=== PATIENT | male | born 1935 | race Two or more races ===

== ENCOUNTER 2019-10-05 20:31 | Inpatient (IN) | payer MEDICARE, MEDICAID ==
[~2019-10-05] VITALS: Ht 165.1 cm; Wt 65.8 kg
[2019-10-05] MEDS ORDERED: FUROSEMIDE 40MG/4ML VIAL IVP ONE (22:15)
[2019-10-05 23:13] LABS: BASOPHILS % 0.9 % (0.0-2.0); EOSINOPHILS % 1.7 % (0.0-5.0); HEMOGLOBIN. 9.4 g/dL (14.0-18.0); LYMPHOCYTES % 17.5 % (20.0-50.0); MEAN CORPUSCULAR HEMOGLOBIN 24.8 pg (28.0-32.0); MEAN CORPUSCULAR VOLUME 79.1 fL (80.0-94.0); MEAN PLATELET VOLUME 8.8 fl (7.4-10.4); MONOCYTES % 9.7 % (2.0-8.0); NEUTROPHILS % 70.2 % (40.0-76.0); PLATELET 161 x1000/uL (130-400); RED BLOOD CELL COUNT 3.79 mill/uL (4.7-6.1); RED CELL DISTRIBUTION WIDTH 29.6 % (11.6-14.6)
[2019-10-05 23:19] LABS: CHLORIDE 107 mEq/L (98-107)
[2019-10-05 23:21] LABS: INR 1.5; PROTHROMBIN TIME 15.3 sec (9.6-11.0)
[2019-10-05 23:23] LABS: PLATELET ESTIMATE NORMAL
[2019-10-06 00:03] LABS: CLARITY URINE CLEAR (CLEAR); COLOR URINE YELLOW (YELLOW); KETONES URINE NEGATIVE (NEGATIVE); LEUKOCYTE ESTERASE URINE NEGATIVE (NEGATIVE); NITRITE URINE NEGATIVE (NEGATIVE); OCCULT BLOOD URINE NEGATIVE (NEGATIVE); PROTEIN URINE NEGATIVE (NEGATIVE); SPECIFIC GRAVITY URINE 1.017 (1.005-1.030)
[2019-10-06 11:30] VITALS: BP 130/68
[2019-10-06] MEDS ORDERED: ONDANSETRON HCL 4MG/2ML INJ IV PRN (11:45)
[2019-10-06] MEDS ORDERED: ACETAMINOPHEN 325MG TABLET PO PRN (11:45)
[2019-10-06 12:00] VITALS: BP 125/62
[2019-10-06] MEDS ORDERED: FUROSEMIDE 40MG/4ML VIAL IVP SCH (12:00)
[2019-10-06] MEDS: ENOXAPARIN 30MG/0.3ML SYR SUBCUT SCH (12:30)
[2019-10-06 14:33] LABS: HEPATITIS B SURFACE ANTIGEN NEGATIVE
[2019-10-06 15:03] LABS: HEPATITIS A AB IGM NEGATIVE (NEGATIVE)
[2019-10-06 16:00] VITALS: BP 124/59
[2019-10-06] MEDS: FUROSEMIDE 40MG/4ML VIAL IVP SCH (16:37)
[2019-10-06 20:00] VITALS: BP 123/51
[2019-10-07] VITALS: BP 128/68
[2019-10-07 04:00] VITALS: BP 142/74
[2019-10-07 07:52] LABS: BASOPHILS % 1.1 % (0.0-2.0); EOSINOPHILS % 5.2 % (0.0-5.0); HEMATOCRIT. 29.8 % (42.0-52.0); HEMOGLOBIN. 9.1 g/dL (14.0-18.0); LYMPHOCYTES % 20.2 % (20.0-50.0); MEAN CORPUSCULAR HEMOGLOBIN 24.1 pg (28.0-32.0); MONOCYTES % 11.1 % (2.0-8.0); NEUTROPHILS % 62.4 % (40.0-76.0); PLATELET 158 x1000/uL (130-400); RED BLOOD CELL COUNT 3.77 mill/uL (4.7-6.1); RED CELL DISTRIBUTION WIDTH 29.3 % (11.6-14.6)
[2019-10-07 08:00] VITALS: BP 114/58
[2019-10-07] MEDS: FUROSEMIDE 40MG/4ML VIAL IVP SCH ×2 (09:56→17:13)
[2019-10-07] MEDS: ENOXAPARIN 30MG/0.3ML SYR SUBCUT SCH (09:56)
[2019-10-07] MEDS ORDERED: ENOXAPARIN 30MG/0.3ML SYR SUBCUT NR (11:30)
[2019-10-07 12:00] VITALS: BP 108/50
[2019-10-07] MEDS ORDERED: DOCU100T MT (14:09)
[2019-10-07] MEDS ORDERED: FURO-151 MT (14:09)
[2019-10-07] MEDS ORDERED: FERR325T23 PO (14:09)
[2019-10-07] MEDS ORDERED: APIX5TAB MT (14:09)
[2019-10-07 16:00] VITALS: BP 110/58
[2019-10-07 16:37] VITALS: BP 110/58
[2019-10-08] MEDS ORDERED: ENOXAPARIN 60MG/0.6ML SYR SUBCUT SCH (09:00)
[2019-10-08] MEDS ORDERED: FERROUS SULFATE 325MG TABLET PO SCH (09:00)
[2019-10-08] MEDS ORDERED: DOCUSATE SODIUM SUGAR FREE 100MG/10ML UDC NG SCH (09:00)
== END 2019-10-07 20:04 | disposition home or self-care (01) | DRG 291 ==
LOC: ER 20:31 → 5WST 23:35 → EDBEDREQ 23:45 → EDBEDREQTM 23:45 → ENRESERV 10-06 07:48
PROVIDERS: ADMIT Internal Medicine; ATTEND Internal Medicine
DX: I13.0 Hypertensive heart and chronic kidney disease with heart failure and stage 1 through stage 4 chronic kidney disease, or unspecified chronic kidney disease (principal); N17.0 Acute kidney failure with tubular necrosis; I50.43 Acute on chronic combined systolic (congestive) and diastolic (congestive) heart failure; E44.0 Moderate protein-calorie malnutrition; I35.0 Nonrheumatic aortic (valve) stenosis; I48.0 Paroxysmal atrial fibrillation; K80.20 Calculus of gallbladder without cholecystitis without obstruction; R74.0 Nonspecific elevation of levels of transaminase and lactic acid dehydrogenase [LDH]; D64.9 Anemia, unspecified; N18.9 Chronic kidney disease, unspecified; Z68.24 Body mass index [BMI] 24.0-24.9, adult; Z79.01 Long term (current) use of anticoagulants; F10.21 Alcohol dependence, in remission
CPT/HCPCS: 36415; 71045; 76700; 80048; 80053; 80061; 81003; 82728; 83540; 83550; 83605; 83735; 83880; 84443; 85025; 86705; 86709; 86803; 87340; 93005; 93306; 99285; J1650; J1940

== ENCOUNTER 2020-12-14 13:38 | Inpatient (IN) | payer MEDICARE, MEDICAID ==
[~2020-12-14] VITALS: Ht 165.1 cm; Wt 58.1 kg
[~2020-12-14 13:38] MED LIST: APIX5TAB MT; DOCU100T MT; ETOMIDATE 2MG/ML 10ML VIAL IV ONE; FERR325T23 PO; FURO-151 MT; SODIUM CHLORIDE 0.9% 10ML VIAL ONE; VECURONIUM BROMIDE 10 MG/VIAL IV ONE
[2020-12-14] MEDS ORDERED: ACETAMINOPHEN 325MG TABLET PO STA (14:13)
[2020-12-14] MEDS ORDERED: SODIUM CHLORIDE 0.9% 1,000 ML IV ONE (14:15)
[2020-12-14 14:36] LABS: HEMATOCRIT. 30.8 % (42.0-52.0); HEMOGLOBIN. 9.9 g/dL (14.0-18.0); MEAN CORPUSCULAR HEMOGLOBIN 27.8 pg (28.0-32.0); MEAN CORPUSCULAR VOLUME 86.3 fL (80.0-94.0); MEAN PLATELET VOLUME 7.8 fl (7.4-10.4); PLATELET 85 x1000/uL (130-400); RED BLOOD CELL COUNT 3.56 mill/uL (4.7-6.1); RED CELL DISTRIBUTION WIDTH 19.6 % (11.6-14.6)
[2020-12-14 14:43] LABS: CHLORIDE 109 mEq/L (98-107)
[2020-12-14 15:02] LABS: NUCLEATED RED BLOOD CELLS 1 /100 WBC
[2020-12-14 15:03] LABS: PLATELET ESTIMATE SLIGHTLY DECREASED
[2020-12-14 15:11] LABS: BG DEOXYHEMOGLOBIN 35.1 % (0.0-5.0); BG FRACTION INSPIRED OXYGEN 21; BG HCO3 ACT 12.7 mmol/L (22.0-26.0); BG METHEMOGLOBIN 0.1 % (0.0-1.5); BG OXYGEN SATURATION 64.5 % (92.0-98.5); BG OXYHEMOGLOBIN 63.8 % (94.0-97.0); BG PH 7.467 (7.350-7.450); BG PO2 36.3 mmHg (75.0-100.0); BG SAMPLE SITE RIGHT BRACHIAL; BG TOTAL HEMOGLOBIN 10.4 g/dL (12.0-18.0); BG VENT MODE ROOM AIR
[2020-12-14] MEDS ORDERED: FENTANYL CITRATE 2,500 MCG in SODIUM CHLORIDE 0.9% 200 ML IV PRN (15:45)
[2020-12-14] MEDS ORDERED: FENTANYL CITRATE/PF 1,000 MCG in SODIUM CHLORIDE 0.9% 80 ML IV PRN (15:45)
[2020-12-14 16:11] LABS: CLARITY URINE CLOUDY (CLEAR); COLOR URINE DARK YELLOW (YELLOW); KETONES URINE TRACE (NEGATIVE); LEUKOCYTE ESTERASE URINE TRACE (NEGATIVE); NITRITE URINE POSITIVE (NEGATIVE); OCCULT BLOOD URINE NEGATIVE (NEGATIVE); PROTEIN URINE 1+ (NEGATIVE); SPECIFIC GRAVITY URINE 1.022 (1.005-1.030)
[2020-12-14] MEDS ORDERED: SODIUM POLYSTYRENE SULFONATE 15 G/60 ML BOT PO NR (16:30)
[2020-12-14] MEDS ORDERED: FUROSEMIDE 40MG/4ML VIAL IVP NR (16:45)
[2020-12-14] MEDS: CEFEPIME 1,000 MG in DEXTROSE 5% WATER 50 ML IV SCH (18:12)
[2020-12-14] MEDS ORDERED: DEXTROSE 50% WATER 50ML SYRINGE IV ONE (19:45)
[2020-12-14] MEDS ORDERED: VANCOMYCIN 1 G PREMIX 200 ML IV NR (20:00)
[2020-12-15] VITALS (65 sets, daily range): BP systolic 59–168; BP diastolic 24–80
[2020-12-15] MEDS: NOREPINEPHRINE 8 MG in DEXTROSE 5% WATER 250 ML IV PRN ×5 (01:12→18:01)
[2020-12-15] MEDS ORDERED: DEXTROSE 50% WATER 50ML SYRINGE IV PRN ×2 (05:15→09:45)
[2020-12-15] MEDS: CEFEPIME 1,000 MG in DEXTROSE 5% WATER 50 ML IV SCH (05:32)
[2020-12-15 05:46] LABS: HEMATOCRIT. 32.1 % (42.0-52.0); HEMOGLOBIN. 9.7 g/dL (14.0-18.0); MEAN CORPUSCULAR HEMOGLOBIN 26.9 pg (28.0-32.0); MEAN CORPUSCULAR VOLUME 89.2 fL (80.0-94.0); MEAN PLATELET VOLUME 8.2 fl (7.4-10.4); RED CELL DISTRIBUTION WIDTH 20.4 % (11.6-14.6)
[2020-12-15 06:02] LABS: PLATELET 28 x1000/uL (130-400)
[2020-12-15 06:55] LABS: T4 FREE 1.1 ng/dL (0.76-1.46)
[2020-12-15 07:08] LABS: VITAMIN B12 SERUM >2000 pg/mL pg/mL (211-911)
[2020-12-15 08:20] LABS: BG BASE EXCESS -17.9 mmol/L (-2.0-2.0); BG CARBOXYHEMOGLOBIN 0.3 % (0.5-1.5); BG DEOXYHEMOGLOBIN 9.3 % (0.0-5.0); BG FRACTION INSPIRED OXYGEN 100; BG HCO3 ACT 12.4 mmol/L (22.0-26.0); BG METHEMOGLOBIN 1.2 % (0.0-1.5); BG OXYGEN SATURATION 90.6 % (92.0-98.5); BG OXYHEMOGLOBIN 89.2 % (94.0-97.0); BG PCO2 48.5 mmHg (35.0-45.0); BG PH 7.026 (7.350-7.450); BG PO2 85.3 mmHg (75.0-100.0); BG SAMPLE SITE RIGHT BRACHIAL; BG TOTAL HEMOGLOBIN 11.3 g/dL (12.0-18.0); BG VENT MODE VENT - AC
[2020-12-15] MEDS ORDERED: SODIUM BICARBONATE 8.4% 1 MEQ/ML 50ML SYR IV SCH ×2 (09:00→12:45)
[2020-12-15] MEDS ORDERED: DEXTROSE 50% WATER 50ML SYRINGE IV ONE (09:30)
[2020-12-15 09:37] LABS: *AMPHETAMINES SCREEN URINE NEGATIVE (NEGATIVE); *BARBITURATES SCREEN URINE NEGATIVE (NEGATIVE); *BENZODIAZEPINES SCREEN URINE NEGATIVE (NEGATIVE); *COCAINE SCREEN URINE NEGATIVE (NEGATIVE); OPIATES URINE SCREEN NEGATIVE (NEGATIVE)
[2020-12-15 09:38] LABS: CANNABINOID URINE SCREEN NEGATIVE (NEGATIVE); METHADONE URINE SCREEN NEGATIVE (NEGATIVE); PHENCYCLIDINE URINE SCREEN NEGATIVE (NEGATIVE)
[2020-12-15] MEDS ORDERED: DOCUSATE SODIUM 100MG CAPSULE PO PRN (09:45)
[2020-12-15] MEDS ORDERED: MAGNESIUM/ALUMINUM HYDROXIDE/SIMETHICONE 30ML UDC PO PRN (09:45)
[2020-12-15] MEDS ORDERED: ONDANSETRON HCL 4MG/2ML INJ IV PRN (09:45)
[2020-12-15] MEDS ORDERED: ENOXAPARIN 40MG/0.4ML SYR SUBCUT SCH (09:45)
[2020-12-15] MEDS ORDERED: ACETAMINOPHEN 325MG TABLET PO PRN (09:45)
[2020-12-15] MEDS ORDERED: CLONIDINE 0.1MG TABLET PO PRN (09:45)
[2020-12-15] MEDS ORDERED: HYDROCODONE/ACETAMINOPHEN 5/325MG TABLET PO PRN (09:45)
[2020-12-15 09:52] LABS: PLATELET ESTIMATE MARKEDLY DECREASED
[2020-12-15 09:54] LABS: NUCLEATED RED BLOOD CELLS 118 /100 WBC
[2020-12-15] MEDS ORDERED: DEXT 5%/0.45% NACL 1000ML 1,000 ML IV SCH (10:00)
[2020-12-15] MEDS ORDERED: PANTOPRAZOLE SODIUM 40 MG/VIAL IV SCH (10:00)
[2020-12-15] MEDS: SODIUM BICARBONATE 150 MEQ in DEXT 10% WATER 1,000 ML IV SCH (10:58)
[2020-12-15] MEDS: PANTOPRAZOLE SODIUM 40 MG/VIAL IV SCH ×2 (10:58→20:06)
[2020-12-15] MEDS ORDERED: PHENYLEPHRINE 100 MG in DEXT 5% WATER 240 ML IV PRN ×2 (11:00→19:45)
[2020-12-15] MEDS ORDERED: VANCOMYCIN 500 MG PREMIX 100 ML IV SCH (12:00)
[2020-12-15] MEDS ORDERED: MEROPENEM 500MG in NORMAL SALINE 50ML IV SCH (12:00)
[2020-12-15] MEDS ORDERED: DEXAMETHASONE 10 MG/ML VIAL IV SCH (12:00)
[2020-12-15 12:37] LABS: BG BASE EXCESS -18.7 mmol/L (-2.0-2.0); BG CARBOXYHEMOGLOBIN 0.1 % (0.5-1.5); BG DEOXYHEMOGLOBIN 6.5 % (0.0-5.0); BG FRACTION INSPIRED OXYGEN 100; BG HCO3 ACT 11.1 mmol/L (22.0-26.0); BG OXYGEN SATURATION 93.5 % (92.0-98.5); BG OXYHEMOGLOBIN 93.4 % (94.0-97.0); BG PCO2 43.1 mmHg (35.0-45.0); BG PH 7.029 (7.350-7.450); BG PO2 95.5 mmHg (75.0-100.0); BG SAMPLE SITE RIGHT RADIAL; BG TOTAL HEMOGLOBIN 9.6 g/dL (12.0-18.0); BG VENT MODE VENT - AC
[2020-12-15] MEDS: IPRATROPIUM/ALBUTEROL 0.5-3(2.5)MG/3ML NEB HHN SCH ×3 (12:51→21:15)
[2020-12-15 17:11] LABS: BG BASE EXCESS -19.8 mmol/L (-2.0-2.0); BG CARBOXYHEMOGLOBIN 0.3 % (0.5-1.5); BG DEOXYHEMOGLOBIN 10.6 % (0.0-5.0); BG FRACTION INSPIRED OXYGEN 100; BG HCO3 ACT 10.1 mmol/L (22.0-26.0); BG OXYGEN SATURATION 89.4 % (92.0-98.5); BG OXYHEMOGLOBIN 89.1 % (94.0-97.0); BG PCO2 40.8 mmHg (35.0-45.0); BG PH 7.013 (7.350-7.450); BG PO2 75.4 mmHg (75.0-100.0); BG SAMPLE SITE RIGHT RADIAL; BG VENT MODE VENT - PRVC
[2020-12-15] MEDS ORDERED: SODIUM BICARBONATE 8.4% 1 MEQ/ML 50ML SYR IV NR (17:30)
[2020-12-15 18:52] LABS: CREATINE KINASE MB FRACTION 64.2 ng/mL (0.5-3.6)
[2020-12-15 19:33] LABS: CHLORIDE 102 mEq/L (98-107)
[2020-12-15 20:31] LABS: PHOSPHORUS 12.2 mg/dL (2.5-4.9)
[2020-12-15] MEDS: NOREPINEPHRINE 32 MG in DEXT 5% WATER 218 ML IV PRN (20:34)
[2020-12-15 21:28] LABS: BASOPHILS % 0.6 % (0.0-2.0); EOSINOPHILS % 1.3 % (0.0-5.0); HEMATOCRIT. 24.8 % (42.0-52.0); HEMOGLOBIN. 7.2 g/dL (14.0-18.0); MEAN CORPUSCULAR HEMOGLOBIN 27.5 pg (28.0-32.0); MEAN CORPUSCULAR VOLUME 94.2 fL (80.0-94.0); MEAN PLATELET VOLUME 11.4 fl (7.4-10.4); MONOCYTES % 3.6 % (2.0-8.0); NEUTROPHILS % 80.5 % (40.0-76.0); RED BLOOD CELL COUNT 2.63 mill/uL (4.7-6.1); RED CELL DISTRIBUTION WIDTH 21.2 % (11.6-14.6)
[2020-12-15 21:35] LABS: PLATELET 13 x1000/uL (130-400)
[2020-12-15 21:50] LABS: PROTHROMBIN TIME > 100.0 sec (9.6-11.0)
[2020-12-15 21:54] LABS: INR > 10.0
[2020-12-15 21:55] LABS: FIBRINOGEN < 50 mg/dL (200-400)
[2020-12-15] MEDS ORDERED: DOPAMINE 800MG PREMIX (DOUBLE) 250 ML IV PRN (22:00)
[2020-12-15] MEDS ORDERED: DEXTROSE 5% WATER 1,000 ML IV SCH (22:30)
[2020-12-15] MEDS ORDERED: SODIUM POLYSTYRENE SULFONATE 15 G/60 ML BOT PO NR (22:30)
[2020-12-16] VITALS (31 sets, daily range): BP systolic 33–140; BP diastolic 22–79
[2020-12-16] MEDS ORDERED: CALCIUM GLUCONATE 1GM PREMIX 50 ML IV SCH
[2020-12-16] MEDS: SODIUM BICARBONATE 150 MEQ in DEXT 10% WATER 1,000 ML IV SCH (00:22)
[2020-12-16] MEDS: IPRATROPIUM/ALBUTEROL 0.5-3(2.5)MG/3ML NEB HHN SCH ×2 (00:56→04:45)
[2020-12-16] MEDS ORDERED: VASOPRESSIN 20 UNIT in SODIUM CHLORIDE 0.9% 99 ML IV PRN (01:45)
[2020-12-16] MEDS: NOREPINEPHRINE 32 MG in DEXT 5% WATER 218 ML IV PRN (05:38)
[2020-12-16 06:05] LABS: MEAN CORPUSCULAR HEMOGLOBIN 27.7 pg (28.0-32.0); MEAN CORPUSCULAR VOLUME 102.2 fL (80.0-94.0); MEAN PLATELET VOLUME 11.8 fl (7.4-10.4); RED BLOOD CELL COUNT 1.98 mill/uL (4.7-6.1); RED CELL DISTRIBUTION WIDTH 22.2 % (11.6-14.6)
[2020-12-16 06:35] LABS: HEMOGLOBIN. 5.5 g/dL (14.0-18.0)
[2020-12-16 06:36] LABS: HEMATOCRIT. 20.3 % (42.0-52.0); PLATELET 10 x1000/uL (130-400)
[2020-12-16 08:11] LABS: NUCLEATED RED BLOOD CELLS 82 /100 WBC
[2020-12-16 08:14] LABS: PLATELET ESTIMATE MARKEDLY DECREASED
[2020-12-16] MEDS ORDERED: EPINEPHRINE 0.1MG/ML (1:10,000) 10ML SYR ONE (08:26)
[2020-12-16] MEDS ORDERED: SODIUM BICARBONATE 8.4% 1 MEQ/ML 50ML SYR IV ONE (08:26)
[2020-12-16] MEDS ORDERED: CALCIUM CHLORIDE 1GM/10ML SYR IV ONE (08:26)
[2020-12-16] MEDS ORDERED: VANCOMYCIN 1 G PREMIX 200 ML IV SCH (10:00)
== END 2020-12-16 09:30 | DRG 720 ==
LOC: ER 13:38 → MICUSO 17:00
PROVIDERS: ADMIT Internal Medicine; ATTEND Internal Medicine
PROC: 5A1945Z Respiratory Ventilation, 24-96 Consecutive Hours (ICD-10-PCS; principal; 2020-12-14)
PROC: 02HV33Z Insertion of Infusion Device into Superior Vena Cava, Percutaneous Approach (ICD-10-PCS; 2020-12-14)
PROC: 0BH17EZ Insertion of Endotracheal Airway into Trachea, Via Natural or Artificial Opening (ICD-10-PCS; 2020-12-14)
PROC: 5A12012 Performance of Cardiac Output, Single, Manual (ICD-10-PCS; 2020-12-16)
DX: A41.89 Other specified sepsis (principal); I63.9 Cerebral infarction, unspecified; J96.01 Acute respiratory failure with hypoxia; N17.0 Acute kidney failure with tubular necrosis; J12.82 Pneumonia due to coronavirus disease 2019; D61.818 Other pancytopenia; U07.1 COVID-19; E43 Unspecified severe protein-calorie malnutrition; R65.21 Severe sepsis with septic shock; I21.4 Non-ST elevation (NSTEMI) myocardial infarction; D69.6 Thrombocytopenia, unspecified; E87.4 Mixed disorder of acid-base balance; E88.09 Other disorders of plasma-protein metabolism, not elsewhere classified; D64.9 Anemia, unspecified; E87.5 Hyperkalemia; I48.0 Paroxysmal atrial fibrillation; E11.649 Type 2 diabetes mellitus with hypoglycemia without coma; K92.2 Gastrointestinal hemorrhage, unspecified; I48.92 Unspecified atrial flutter; I70.0 Atherosclerosis of aorta; E11.65 Type 2 diabetes mellitus with hyperglycemia; K80.20 Calculus of gallbladder without cholecystitis without obstruction; R74.01 Elevation of levels of liver transaminase levels; N13.6 Pyonephrosis; N28.1 Cyst of kidney, acquired; I13.0 Hypertensive heart and chronic kidney disease with heart failure and stage 1 through stage 4 chronic kidney disease, or unspecified chronic kidney disease; I50.9 Heart failure, unspecified; N18.30 Chronic kidney disease, stage 3 unspecified; E11.22 Type 2 diabetes mellitus with diabetic chronic kidney disease; Z68.21 Body mass index [BMI] 21.0-21.9, adult; Z79.01 Long term (current) use of anticoagulants
CPT/HCPCS: 36415; 36600; 71045; 76770; 80048; 80053; 80061; 80305; 81003; 82330; 82375; 82550; 82553; 82607; 82728; 82805; 82962; 83540; 83550; 83605; 83735; 83880; 84100; 84145; 84439; 84443; 84481; 84484; 85025; 85044; 85362; 85379; 85384; 86140; 87070; 87077; 87186; 87426; 87804; 92950; 93005; 93880; 93970; 94002; 94003; 94640; 99291; C9113; J0610; J0692; J1100; J1265; J1940; J2185; J2370; J3370; J3490; J7030; J7050; J7060; J7070; U0003; U0005